=== PATIENT | female | born 1980 | race Caucasian/White ===

== ENCOUNTER 2019-08-13 13:49 | Emergency (ER) | payer SELFPAY ==
--- NOTE | 2019-08-13 14:39 | EDM.PDOC ---
ED HPI GENERAL MEDICAL PROBLEM - General Chief Complaint: General Stated Complaint: PANIC ATTACKS Time Seen by Provider: 08/13/19 14:21 Source of Information: Reports: Patient History Limitations: Reports: No Limitations - History of Present Illness INITIAL COMMENTS - FREE TEXT/NARRATIVE: This patient who has a history of panic attacks and had a full work up in [facility] in the recent past presents to the ER with a panicky feeling, throat constriction, dry mouth and "rushes" since 0930 today. She had similar attacks in the past and treated them with breathing exercises and prn hydroxizine. She ran out of this medication and is in requesting more. She denies fever, chills, chest pain, dyspnea or any new neuro symptoms. She and her family recently moved here from [place], [place] and has not found a primary care doctor in the area. Chest Pain Score (Numeric/FACES): 5 - Related Data Allergies Allergy/AdvReac Type Severity Reaction Status Date / Time hydromorphone [From Dilaudid] Allergy Shortness Verified 08/13/19 14:13 of Breath Home Meds: Home Meds hydrOXYzine HCL [hydrOXYzine] 25 mg PO Q6H PRN 08/13/19 [History] Past Medical History Psychiatric History: Reports: Anxiety - Past Surgical History HEENT Surgical History: Reports: Tonsillectomy Social & Family History - Tobacco Use Smoking Status *Q: Light Tobacco Smoker Years of Tobacco use: 29 Packs/Tins Daily: 0.1 - Caffeine Use Caffeine Use: Reports: None - Recreational Drug Use Recreational Drug Use: No ED ROS GENERAL - Review of Systems Review Of Systems: See Below Constitutional: Denies: Fever, Chills, Weakness, Fatigue, Diaphoresis HEENT: Reports: Other (throat constriction) Respiratory: Denies: Shortness of Breath, Wheezing, Cough Cardiovascular: Denies: Chest Pain, Dyspnea on Exertion, Palpitations Endocrine: Denies: Polydypsia, Polyuria GI/Abdominal: Reports: No Symptoms Neurological: Denies: Confusion, Dizziness, Paresthesia, Syncope Psychiatric: Reports: Anxiety. Denies: Homicidal Ideation, Suicidal Ideation Hematologic/Lymphatic: Reports: No Symptoms ED EXAM, GENERAL - Physical Exam Exam: See Below Exam Limited By: No Limitations General Appearance: Alert, WD/WN, No Apparent Distress, Anxious Ears: Normal External Exam, Normal Canal Throat/Mouth: Normal Inspection, Normal Lips Head: Normocephalic Respiratory/Chest: No Respiratory Distress, Lungs Clear, Normal Breath Sounds Cardiovascular: Normal Peripheral Pulses, Regular Rate, Rhythm, No Edema GI/Abdominal: Normal Bowel Sounds, Soft, Non-Tender Extremities: Normal Inspection, Normal Range of Motion Neurological: Alert, Oriented, Normal Cognition, No Motor/Sensory Deficits Psychiatric: Normal Affect, Anxious Skin Exam: Warm, Dry Course - Vital Signs Text/Narrative:: This patient presents with a panic attack. She had similar problems in the past that respond to hydroxizine which she ran out of . She has not established care in this area after recently moving to [place] from [place], [place]. She was given an Rx for hydroxyzine 25 mg every 6 hours as needed. She will make an appointment at the clinic in the near future. Last Recorded V/S: Last Vital Signs Temp 37.0 C 08/13/19 14:10 Pulse 86 08/13/19 14:10 Resp 17 08/13/19 14:10 BP 141/87 H 08/13/19 14:10 Pulse Ox 99 08/13/19 14:10 - Orders/Labs/Meds Orders: Active Orders 24 hr Category Date Time Status OB 1st Tri NT Measure [US] Stat Exams 08/13/19 14:53 Stop Req Meds: Medications Discontinued Medications Generic Name Dose Route Start Last Admin Trade Name Freq PRN Reason Stop Dose Admin Sodium Chloride 1,000 mls @ 1,000 mls/hr 08/13/19 15:00 Normal Saline IV ASDIRECTED HOMA Departure - Departure Time of Disposition: 15:05 Disposition: Home, Self-Care 01 Condition: Good Clinical Impression: Anxiety - Discharge Information *PRESCRIPTION DRUG MONITORING PROGRAM REVIEWED*: Yes *COPY OF PRESCRIPTION DRUG MONITORING REPORT IN PATIENT MARK: No Referrals: PCP,None [Primary Care Provider] - Forms: ED Department Discharge Additional Instructions: Take hydroxyzine as prescribed and as needed for anxiety and panic attacks. Make an appointment with a primary care provider for follow up in the near future. Return to the ER if you have problems or concerns. Sepsis Event Note (ED) - Evaluation Sepsis Screening Result: No Definite Risk - Focused Exam Vital Signs: Vital Signs Temp Pulse Resp BP Pulse Ox 08/13/19 14:10 37.0 C 86 17 141/87 H 99 08/13/19 14:04 37.0 C 86 17 141/87 H 99 - My Orders Last 24 Hours: My Active Orders 08/13/19 14:53 OB 1st Tri NT Measure [US] Stat - Assessment/Plan Last 24 Hours: My Active Orders 08/13/19 14:53 OB 1st Tri NT Measure [US] Stat
[2019-08-13] MEDS ORDERED: Sodium Chloride 0.9% 1,000 ML IV SCH (15:00)
== END 2019-08-13 15:17 | disposition home or self-care (01) ==
LOC: JP.ED 13:49
DX: F41.9 Anxiety disorder, unspecified (principal); F17.210 Nicotine dependence, cigarettes, uncomplicated; Z79.899 Other long term (current) drug therapy; Z88.5 Allergy status to narcotic agent
CPT/HCPCS: 99283

== ENCOUNTER 2019-09-14 01:50 | Emergency (ER) | payer MEDICAID, OTHER ==
[2019-09-14] MEDS ORDERED: Sodium Chloride 0.9% 10 ML Syringe FLUSH PRN (02:10)
[2019-09-14] MEDS ORDERED: Ondansetron 4 MG/2 ML SDV IVPUSH ONE (02:14)
[2019-09-14] MEDS ORDERED: fentaNYL 100 MCG/2 ML SDV IVPUSH ONE ×2 (02:14→04:10)
--- NOTE | 2019-09-14 02:16 | EDM.PDOC ---
ED HPI GENERAL MEDICAL PROBLEM - General Chief Complaint: Gastrointestinal Problem Stated Complaint: BACK PAIN Time Seen by Provider: 09/14/19 02:06 Source of Information: Reports: Patient, Family, RN Notes Reviewed History Limitations: Reports: No Limitations - History of Present Illness INITIAL COMMENTS - FREE TEXT/NARRATIVE: 39-year-old female presents emergency department a complaint of epigastric pain, she states the pain started early this morning she did try eating some spaghetti and meatballs around noon however had emesis has felt ill the remainder of the day unable to eat or drink no history of abdominal surgeries Middle Back Pain Score (Numeric/FACES): 9 - Related Data Allergies Allergy/AdvReac Type Severity Reaction Status Date / Time hydromorphone [From Dilaudid] Allergy Shortness Verified 09/14/19 01:57 of Breath Home Meds: Home Meds hydrOXYzine HCL [hydrOXYzine] 25 mg PO Q6H PRN 08/13/19 [History] Past Medical History Psychiatric History: Reports: Anxiety - Infectious Disease History Infectious Disease History: Reports: Chicken Pox - Past Surgical History HEENT Surgical History: Reports: Tonsillectomy Social & Family History - Tobacco Use Smoking Status *Q: Current Every Day Smoker Years of Tobacco use: 29 Packs/Tins Daily: 0.2 - Caffeine Use Caffeine Use: Reports: None - Recreational Drug Use Recreational Drug Use: No ED ROS GENERAL - Review of Systems Review Of Systems: See Below Constitutional: Reports: Diaphoresis HEENT: Reports: No Symptoms Respiratory: Reports: No Symptoms Cardiovascular: Reports: No Symptoms GI/Abdominal: Reports: Abdominal Pain (Epigastric region), Nausea, Vomiting : Reports: No Symptoms Musculoskeletal: Reports: No Symptoms Skin: Reports: No Symptoms Neurological: Reports: No Symptoms ED EXAM, GI/ABD - Physical Exam Exam: See Below Exam Limited By: No Limitations General Appearance: Alert, WD/WN, Moderate Distress Respiratory/Chest: No Respiratory Distress, Lungs Clear, Normal Breath Sounds, No Accessory Muscle Use, Chest Non-Tender Cardiovascular: Regular Rate, Rhythm, No Murmur GI/Abdominal Exam: Soft, No Organomegaly, No Distention, Tender Back Exam: Normal Inspection, Full Range of Motion. No: CVA Tenderness (R), CVA Tenderness (L), Muscle Spasm, Paraspinal Tenderness, Vertebral Tenderness Extremities: No Pedal Edema Course - Vital Signs Last Recorded V/S: Last Vital Signs Temp 96.8 F L 09/14/19 01:58 Pulse 53 L 09/14/19 05:37 Resp 18 09/14/19 01:58 BP 113/56 L 09/14/19 05:37 Pulse Ox 100 09/14/19 01:58 - Orders/Labs/Meds Orders: Active Orders 24 hr Category Date Time Status Peripheral IV Care [RC] . DIRECTED Care 09/14/19 02:11 Active CULTURE URINE [RM] Urgent Lab 09/14/19 06:04 Ordered Sodium Chloride 0.9% [Normal Saline] 1,000 ml Med 09/14/19 02:15 Active IV ASDIRECTED Sodium Chloride 0.9% [Saline Flush] Med 09/14/19 02:10 Active 10 ml FLUSH ASDIRECTED PRN Peripheral IV Insertion Adult [OM.PC] Urgent Oth 09/14/19 02:10 Ordered Medication Orders Sodium Chloride (Normal Saline) 1,000 mls @ 500 mls/hr IV ASDIRECTED HOMA Last Admin: 09/14/19 02:33 Dose: 500 mls/hr Documented by: Infusion: 09/14/19 02:33 Dose: 500 mls/hr Documented by: Admin: 09/14/19 02:30 Dose: 500 mls/hr Documented by: CLIFFORD Sodium Chloride (Saline Flush) 10 ml FLUSH ASDIRECTED PRN PRN Reason: Keep Vein Open Last Admin: 09/14/19 02:31 Dose: 10 ml Documented by: CLIFFORD Labs: Laboratory Tests 09/14/19 09/14/19 09/14/19 Range/Units 02:25 02:25 02:25 WBC 8.7 (4.5-11.0) K/uL RBC 5.08 (3.30-5.50) M/uL Hgb 14.9 (12.0-15.0) g/dL Hct 45.1 (36.0-48.0) % MCV 89 (80-98) fL MCH 29 (27-31) pg MCHC 33 (32-36) % Plt Count 409 H (150-400) K/uL Neut % (Auto) 72 H (36-66) % Lymph % (Auto) 19 L (24-44) % [place] % (Auto) 8 H (2-6) % Eos % (Auto) 0 L (2-4) % Baso % (Auto) 1 (0-1) % Sodium 139 L (140-148) mmol/L Potassium 4.1 (3.6-5.2) mmol/L Chloride 102 (100-108) mmol/L Carbon Dioxide 30 (21-32) mmol/L Anion Gap 11.1 (5.0-14.0) mmol/L BUN 15 (7-18) mg/dL Creatinine 1.2 H (0.6-1.0) mg/dL Est Cr Clr Drug Dosing 52.58 mL/min Estimated GFR (MDRD) 50 L (>60) Glucose 148 H (74-106) mg/dL Lactic Acid 1.6 (0.4-2.0) mmol/L Calcium 8.8 (8.5-10.1) mg/dL Total Bilirubin 1.4 H (0.2-1.0) mg/dL AST 424 H (15-37) U/L ALT 176 H (12-78) U/L Alkaline Phosphatase 105 (46-116) U/L Troponin I < 0.017 (0.000-0.056) ng/mL Total Protein 8.3 H (6.4-8.2) g/dL Albumin 3.8 (3.4-5.0) g/dL Globulin 4.5 H (2.3-3.5) g/dL Albumin/Globulin Ratio 0.8 L (1.2-2.2) Lipase 268 (73-393) U/L Urine Color (YELLOW) Urine Appearance (CLEAR) Urine pH (5.0-8.0) Ur Specific [place] (1.008-1.030) Urine Protein (NEGATIVE) mg/dL Urine Glucose (UA) (NEGATIVE) mg/dL Urine Ketones (NEGATIVE) mg/dL Urine Occult Blood (NEGATIVE) Urine Nitrite (NEGATIVE) Urine Bilirubin (NEGATIVE) Urine Urobilinogen (0.2-1.0) EU/dL Ur Leukocyte Esterase (NEGATIVE) Urine RBC (0-5) Urine WBC (0-5) Ur Epithelial Cells Amorphous Sediment Urine Bacteria Urine Mucus Urine HCG, Qual 09/14/19 09/14/19 Range/Units 02:40 02:40 WBC (4.5-11.0) K/uL RBC (3.30-5.50) M/uL Hgb (12.0-15.0) g/dL Hct (36.0-48.0) % MCV (80-98) fL MCH (27-31) pg MCHC (32-36) % Plt Count (150-400) K/uL Neut % (Auto) (36-66) % Lymph % (Auto) (24-44) % [place] % (Auto) (2-6) % Eos % (Auto) (2-4) % Baso % (Auto) (0-1) % Sodium (140-148) mmol/L Potassium (3.6-5.2) mmol/L Chloride (100-108) mmol/L Carbon Dioxide (21-32) mmol/L Anion Gap (5.0-14.0) mmol/L BUN (7-18) mg/dL Creatinine (0.6-1.0) mg/dL Est Cr Clr Drug Dosing mL/min Estimated GFR (MDRD) (>60) Glucose (74-106) mg/dL Lactic Acid (0.4-2.0) mmol/L Calcium (8.5-10.1) mg/dL Total Bilirubin (0.2-1.0) mg/dL AST (15-37) U/L ALT (12-78) U/L Alkaline Phosphatase (46-116) U/L Troponin I (0.000-0.056) ng/mL Total Protein (6.4-8.2) g/dL Albumin (3.4-5.0) g/dL Globulin (2.3-3.5) g/dL Albumin/Globulin Ratio (1.2-2.2) Lipase (73-393) U/L Urine Color Yellow (YELLOW) Urine Appearance Slightly cloudy A (CLEAR) Urine pH 7.0 (5.0-8.0) Ur Specific [place] 1.025 (1.008-1.030) Urine Protein Negative (NEGATIVE) mg/dL Urine Glucose (UA) Negative (NEGATIVE) mg/dL Urine Ketones Negative (NEGATIVE) mg/dL Urine Occult Blood Negative (NEGATIVE) Urine Nitrite Negative (NEGATIVE) Urine Bilirubin Small H (NEGATIVE) Urine Urobilinogen 2.0 H (0.2-1.0) EU/dL Ur Leukocyte Esterase Trace H (NEGATIVE) Urine RBC 0-5 (0-5) Urine WBC 5-10 H (0-5) Ur Epithelial Cells Moderate Amorphous Sediment Moderate Urine Bacteria Many Urine Mucus Few Urine HCG, Qual Negative Meds: Medications Generic Name Dose Route Start Last Admin Trade Name Freq PRN Reason Stop Dose Admin Sodium Chloride 1,000 mls @ 500 mls/hr 09/14/19 02:15 09/14/19 02:33 Normal Saline IV 500 mls/hr ASDIRECTED HOMA Administration Sodium Chloride 10 ml 09/14/19 02:10 09/14/19 02:31 Saline Flush FLUSH 10 ml ASDIRECTED PRN Administration Keep Vein Open Discontinued Medications Generic Name Dose Route Start Last Admin Trade Name Freq PRN Reason Stop Dose Admin Fentanyl 50 mcg 09/14/19 02:14 09/14/19 02:30 Sublimaze IVPUSH 09/14/19 02:15 50 mcg ONETIME ONE Administration Fentanyl 100 mcg 09/14/19 04:10 09/14/19 04:18 Sublimaze IVPUSH 09/14/19 04:11 100 mcg ONETIME ONE Administration Sodium Chloride 85 mls @ 4 mls/sec 09/14/19 02:30 09/14/19 02:57 Normal Saline IV 09/14/19 02:31 4 mls/sec ASDIRECTED STA Administration Iopamidol 150 ml 09/14/19 02:30 09/14/19 02:57 Isovue-300 (61%) IV 09/14/19 02:31 150 ml . DIRECTED STA Administration Ketorolac Tromethamine 30 mg 09/14/19 03:13 09/14/19 03:17 Toradol IVPUSH 09/14/19 03:14 30 mg ONETIME ONE Administration Ondansetron HCl 4 mg 09/14/19 02:14 09/14/19 02:30 Zofran IVPUSH 09/14/19 02:15 4 mg ONETIME ONE Administration Departure - Departure Time of Disposition: 06:18 Disposition: Home, Self-Care 01 Condition: Fair Clinical Impression: Cholelithiasis Qualifiers: Cholelithiasis location: gallbladder Cholecystitis presence: without cholecystitis Biliary obstruction: without biliary obstruction Qualified Code(s): K80.20 - Calculus of gallbladder without cholecystitis without obstruction - Discharge Information Instructions: Cholelithiasis Referrals: PCP,None [Primary Care Provider] - Forms: ED Department Discharge Additional Instructions: Recommend bland diet, use hydrocodone as needed for pain control, use Zofran as needed for nausea and vomiting symptoms, please call to the [facility] in the morning for an appointment time with Dr. Coats for further evaluation from general surgery Sepsis Event Note (ED) - Evaluation Sepsis Screening Result: No Definite Risk - Focused Exam Vital Signs: Vital Signs Temp Pulse Resp BP Pulse Ox 09/14/19 05:37 53 L 113/56 L 09/14/19 04:30 65 130/68 09/14/19 03:45 85 140/78 09/14/19 01:58 96.8 F L 99 18 143/80 H 100 - My Orders Last 24 Hours: My Active Orders 09/14/19 02:10 Sodium Chloride 0.9% [Saline Flush] 10 ml FLUSH ASDIRECTED PRN Peripheral IV Insertion Adult [OM.PC] Urgent 09/14/19 02:11 Peripheral IV Care [RC] . DIRECTED 09/14/19 02:15 Sodium Chloride 0.9% [Normal Saline] 1,000 ml IV ASDIRECTED 09/14/19 06:04 CULTURE URINE [RM] Urgent - Assessment/Plan Last 24 Hours: My Active Orders 09/14/19 02:10 Sodium Chloride 0.9% [Saline Flush] 10 ml FLUSH ASDIRECTED PRN Peripheral IV Insertion Adult [OM.PC] Urgent 09/14/19 02:11 Peripheral IV Care [RC] . DIRECTED 09/14/19 02:15 Sodium Chloride 0.9% [Normal Saline] 1,000 ml IV ASDIRECTED 09/14/19 06:04 CULTURE URINE [RM] Urgent Plan: Assessment Acuity = acute Site and laterality = cholelithiasis Etiology = unknown Manifestations = epigastric abdominal pain Location of injury = Home Lab values = CBC unremarkable creatinine elevated 1.2 consistent chronic renal failure stage G3 a lactic acid normal 1.6 total bilirubin elevated 1.4 consisten t with hyperbilirubinemia AST 424 ALT 176 consistent with elevated liver enzymes troponin is negative CT scan does show multiple stones and fatty liver disease, ultrasound confirms multiple stones with no sign of cholecystitis Plan Did review lab work and CT image study and ultrasound of her she is pain-free at this time plan to discharge home hydrocodone 5/325 1 tab p.o. 3 times daily PRN total #10 Zofran 4 mg ODT 1 tab p.o. 3 times daily PRN total #10 consultation has been set up with Dr. Coats general surgery within the next couple of days This note was dictated using [employer] voice recognition software please call with any questions on syntax or grammar.
[2019-09-14] MEDS ORDERED: Iopamidol 612 MG/ML 150 ML Bottle IV STA (02:30)
[2019-09-14] MEDS: Sodium Chloride 0.9% 1,000 ML IV SCH ×2 (02:30→02:33)
[2019-09-14] MEDS ORDERED: Ketorolac 30 MG/ML SDV IVPUSH ONE (03:13)
--- NOTE | 2019-09-14 04:02 | CRLCT ---
INDICATION: Epigastric pain TECHNIQUE: CT abdomen and pelvis acquired with IV contrast. 150 cc Isovue-300 COMPARISON: None FINDINGS: Lower chest: Unremarkable. Liver: Unremarkable. Spleen: Unremarkable. Pancreas: Unremarkable. Gallbladder and bile ducts: Cholelithiasis. Kidneys: Unremarkable. Adrenal glands: Unremarkable. GI tract: Diffuse colonic fecal retention mildly distended stomach. Appendix is normal. Vascular structures: Unremarkable. Lymph nodes: Unremarkable. Miscellaneous: Unremarkable. No free air or significant free fluid. Pelvic Organs: Unremarkable. Bones: Unremarkable for age. IMPRESSION: Diffuse colonic fecal retention mildly distended stomach with debris. The remainder of the exam is essentially unremarkable. Dictated by Garrett Mclaughlin MD @ 09/14/2019 4:00:35 AM Please note that all CT scans at this facility use dose modulation, iterative reconstruction, and/or weight-based dosing when appropriate to reduce radiation dose to as low as reasonably achievable. Dictated by: Garrett Mclaughlin MD @ 09/14/2019 04:00:43 (Electronically Signed)
--- NOTE | 2019-09-14 05:59 | CRLUS ---
INDICATION: Abdominal pain, elevated LFTs TECHNIQUE: Ultrasound abdomen limited. Sonographic images of the right upper quadrant were obtained using salcedo-scale and color Doppler images. COMPARISON: None FINDINGS: Liver: Normal in size diffuse fatty infiltration. No masses. No intrahepatic biliary dilatation. Gallbladder: Cholelithiasis. Normal wall thickness. No pericholecystic fluid. Common bile duct: 4 mm. Pancreas: Normal. Right kidney: 10 point a cm. Normal echotexture and cortex. No masses, stones, or hydronephrosis. Vasculature: Proximal abdominal aorta and IVC are normal. IMPRESSION: Multiple gallstones in an otherwise normal-appearing gallbladder. Diffuse fatty infiltration of the liver. Dictated by Garrett Mclaughlin MD @ 09/14/2019 5:58:46 AM Dictated by: Garrett Mclaughlin MD @ 09/14/2019 05:58:52 (Electronically Signed)
== END 2019-09-14 06:30 | disposition home or self-care (01) ==
LOC: JP.ED 01:50
DX: K80.20 Calculus of gallbladder without cholecystitis without obstruction (principal); F17.210 Nicotine dependence, cigarettes, uncomplicated; Z88.5 Allergy status to narcotic agent
CPT/HCPCS: 36415; 74177; 76705; 80053; 81001; 81025; 83605; 83690; 84484; 85025; 87086; 96361; 96374; 96375; 96376; 99284; J1885; J2405; J3010; J7030; J7050; Q9967

== ENCOUNTER 2019-09-27 12:11 | Inpatient (IN) | payer MEDICAID ==
[2019-09-27] MEDS ORDERED: Ondansetron 4 MG/2 ML SDV IVPUSH PRN (12:27)
[2019-09-27] MEDS ORDERED: Lactated Ringers 1,000 ML IV ONE (12:30)
[2019-09-27] MEDS ORDERED: fentaNYL/Normal Saline 600 MCG/30 ML PCA Vial IV PRN (13:00)
[2019-09-27] MEDS ORDERED: Naloxone 0.4 MG/ML SDV IV PRN (13:00)
[2019-09-27] MEDS: Ampicillin/Sulbactam Na 3 GM in Sodium Chloride 0.9% 100 ML IV SCH ×2 (13:13→18:16)
[2019-09-27] MEDS ORDERED: hydrOXYzine HCl 25 MG Tab PO PRN (13:31)
[2019-09-27] MEDS: Pantoprazole 40 MG Vial IV SCH (14:15)
[2019-09-27] MEDS: Dextrose 5%-Lactated Ringers 1,000 ML IV SCH (18:18)
[2019-09-28] MEDS: Ampicillin/Sulbactam Na 3 GM in Sodium Chloride 0.9% 100 ML IV SCH ×4 (00:40→19:25)
[2019-09-28] MEDS: Dextrose 5%-Lactated Ringers 1,000 ML IV SCH ×2 (05:06→18:06)
[2019-09-28] MEDS ORDERED: Bupivacaine 0.5%/EPINEPHrine 1:200,000 50 ML MDV ONE (06:40)
--- NOTE | 2019-09-28 07:44 | PCM.HP.2 ---
H&P History of Present Illness - General Date of Service: 09/28/19 Admit Problem/Dx: Admission Diagnosis/Problem Admission Diagnosis/Problem Acute cholecystitis Source of Information: Patient History Limitations: Reports: No Limitations - History of Present Illness Initial Comments - Free Text/Narative: Mel states that she has had problems with right upper quadrant abdominal pain, bloating and nausea for about 1 month. The pain increased on 09/14/2019 after eating spaghetti and meatballs that she went to the ED. After evaluation of elevated LFTs an US revealed multiple gallstones in her gallbladder. Mel saw Luis Manuel Coats MD in the clinic yesterday and was a direct admit to the hospital for dehydration and pain control. She is NPO for a Laparoscopic Cholecystectomy today, 09/29/2019 - Case to Follow. - Related Data Allergies/Adverse Reactions: Allergies Allergy/AdvReac Type Severity Reaction Status Date / Time hydromorphone [From Dilaudid] Allergy Shortness Verified 09/14/19 01:57 of Breath Home Medications: Home Meds hydrOXYzine HCL [hydrOXYzine] 25 mg PO Q6H PRN 08/13/19 [History] Past Medical History Gastrointestinal History: Reports: GERD, Hiatal Hernia Psychiatric History: Reports: Anxiety - Infectious Disease History Infectious Disease History: Reports: Chicken Pox - Past Surgical History HEENT Surgical History: Reports: Tonsillectomy GI Surgical History: Reports: None Social & Family History - Family History Family Medical History: Noncontributory - Tobacco Use Smoking Status *Q: Current Every Day Smoker Years of Tobacco use: 25 Packs/Tins Daily: 0.5 Second Hand Smoke Exposure: Yes - Caffeine Use Caffeine Use: Reports: None - Recreational Drug Use Recreational Drug Use: No H&P Review of Systems - Review of Systems: Review Of Systems: Comprehensive ROS is negative, except as noted in HPI. Exam - Exam Exam: See Below - Vital Signs Vital Signs: Last Vital Signs Temp 98.2 F 09/28/19 04:00 Pulse 61 09/27/19 21:00 Resp 16 09/28/19 04:00 BP 126/70 09/28/19 04:00 Pulse Ox 98 09/28/19 04:00 Weight: 272 lb 6.4 oz - Exam Quality Assessment: DVT Prophylaxis General: Alert, Oriented, Mild Distress HEENT: PERRLA, Other (condition of teeth poor) Neck: Supple, Trachea Midline Lungs: Clear to Auscultation, Normal Respiratory Effort Cardiovascular: Regular Rate, Regular Rhythm GI/Abdominal Exam: Soft, Other (tenderness in the right upper abdominal quadrant) (Female) Exam: Deferred Rectal (Female) Exam: Deferred Back Exam: Normal Inspection, Full Range of Motion Extremities: Normal Inspection, No Pedal Edema Skin: Warm, Dry, Intact Neurological: Cranial Nerves Intact, Reflexes Equal Bilateral Neuro Extensive - Mental Status: Alert, Oriented x3, Normal Mood/Affect, Memory Intact Neuro Extensive - Motor, Sensory, Reflexes: CN II-XII Intact Psychiatric: Alert, Normal Affect, Normal Mood - Patient Data Lab Results Last 24 hrs: Laboratory Results - last 24 hr 09/27/19 09/27/19 09/27/19 Range/Units 12:56 12:56 12:56 WBC 7.3 (4.5-11.0) K/uL RBC 4.94 (3.30-5.50) M/uL Hgb 14.1 (12.0-15.0) g/dL Hct 44.1 (36.0-48.0) % MCV 89 (80-98) fL MCH 29 (27-31) pg MCHC 32 (32-36) % Plt Count 396 (150-400) K/uL Sodium 138 L (140-148) mmol/L Potassium 4.6 (3.6-5.2) mmol/L Chloride 104 (100-108) mmol/L Carbon Dioxide 29 (21-32) mmol/L Anion Gap 9.6 (5.0-14.0) mmol/L BUN 14 (7-18) mg/dL Creatinine 1.1 H (0.6-1.0) mg/dL Est Cr Clr Drug Dosing 57.36 mL/min Estimated GFR (MDRD) 56 L (>60) Glucose 90 (74-106) mg/dL Calcium 8.7 (8.5-10.1) mg/dL Phosphorus 2.7 (2.5-4.9) mg/dL Magnesium 2.1 (1.8-2.4) mg/dL Total Bilirubin 0.3 D (0.2-1.0) mg/dL AST 16 D (15-37) U/L ALT 23 D (12-78) U/L Alkaline Phosphatase 69 (46-116) U/L Total Protein 7.6 (6.4-8.2) g/dL Albumin 3.5 (3.4-5.0) g/dL Globulin 4.1 H (2.3-3.5) g/dL Albumin/Globulin Ratio 0.9 L (1.2-2.2) SARS Virus RNA (PCR) (NEGATIVE) 09/27/19 Range/Units 13:38 WBC (4.5-11.0) K/uL RBC (3.30-5.50) M/uL Hgb (12.0-15.0) g/dL Hct (36.0-48.0) % MCV (80-98) fL MCH (27-31) pg MCHC (32-36) % Plt Count (150-400) K/uL Sodium (140-148) mmol/L Potassium (3.6-5.2) mmol/L Chloride (100-108) mmol/L Carbon Dioxide (21-32) mmol/L Anion Gap (5.0-14.0) mmol/L BUN (7-18) mg/dL Creatinine (0.6-1.0) mg/dL Est Cr Clr Drug Dosing mL/min Estimated GFR (MDRD) (>60) Glucose (74-106) mg/dL Calcium (8.5-10.1) mg/dL Phosphorus (2.5-4.9) mg/dL Magnesium (1.8-2.4) mg/dL Total Bilirubin (0.2-1.0) mg/dL AST (15-37) U/L ALT (12-78) U/L Alkaline Phosphatase (46-116) U/L Total Protein (6.4-8.2) g/dL Albumin (3.4-5.0) g/dL Globulin (2.3-3.5) g/dL Albumin/Globulin Ratio (1.2-2.2) SARS Virus RNA (PCR) Negative (NEGATIVE) Result Diagrams: 09/27/19 12:56 09/27/19 12:56 Sepsis Event Note - Evaluation Sepsis Screening Result: No Definite Risk - Focused Exam Vital Signs: Vital Signs Temp Pulse Resp BP Pulse Ox 09/28/19 04:00 98.2 F 16 126/70 98 09/27/19 21:00 98.2 F 61 16 140/84 100 - Problem List (1) Cholelithiasis SNOMED Code(s): 948583761 ICD Code: K80.20 - CALCULUS OF GALLBLADDER W/O CHOLECYSTITIS W/O OBSTRUCTION Status: Acute Current Visit: No Qualifiers: Cholelithiasis location: gallbladder Cholecystitis presence: with cholecystitis Biliary obstruction: without biliary obstruction Qualified Code(s): K80.20 - Calculus of gallbladder without cholecystitis without obstruction Problem List Initiated/Reviewed/Updated: Yes Orders Last 24hrs: Active Orders 24 hr Category Date Time Status Admission Status [Patient Status] [ADT] Routine ADT 09/27/19 12:00 Active Ambulate [RC] QID Care 09/27/19 12:22 Active Incentive Breathing [RT Incentive Spirometry] [RC] Care 09/27/19 12:23 Active Q1HWA Intake and Output [RC] QSHIFT Care 09/27/19 12:25 Active Up to Chair [RC] QID Care 09/27/19 12:22 Active Verify Patient Consent Obtain [RC] ASDIRECTED Care 09/28/19 10:30 Active Vital Signs [RC] Q4H Care 09/27/19 12:22 Active Clear Liquid Diet [DIET] Diet 09/27/19 Dinner Active NPO After Midnight [Nothing per Oral After Midnight Diet 09/27/19 Dinner Active Diet] [DIET] Ampicillin/Sulbactam Na [Unasyn] 3 gm Med 09/27/19 13:00 Active Sodium Chloride 0.9% [Normal Saline] 100 ml IV Q6H Aztreonam [Azactam] 1 gm Med 09/27/19 14:00 Active Sodium Chloride 0.9% [Normal Saline] 50 ml IV Q8H Dextrose 5%-Lactated Ringers 1,000 ml Med 09/27/19 17:30 Active IV ASDIRECTED Ketamine [Ketalar] Med 09/28/19 11:00 Active 26 mg IV ASDIRECTED Ketamine [Ketalar] 50 mg Med 09/28/19 11:00 Active Sodium Chloride 0.9% [Normal Saline] 49.5 ml IV ASDIRECTED Naloxone [Narcan] Med 09/27/19 13:00 Active 0.1 mg IV ASDIRECTED PRN Ondansetron [Zofran] Med 09/27/19 12:27 Active 4 mg IVPUSH Q4H PRN Pantoprazole [ProTONIX IV] Med 09/27/19 14:00 Active 40 mg IV Q24H Ropivacaine [Naropin 0.5%] 60 ml Med 09/28/19 11:00 Active dexAMETHasone [Dexamethasone] 8 mg EPINEPHrine [Adrenalin] 0.4 mg Sodium Chloride 0.9% [Normal Saline] 17.6 ml NERVRT ASDIRECTED fentaNYL/Normal Saline [fentaNYL in NS 20 MCG/ML 30 ML Med 09/27/19 13:00 Active REGISTERED PHARMACY TECHNICIAN] 0 mcg IV ASDIRECTED PRN SCD [Sequential Compression Device] [OM.PC] Routine Oth 09/27/19 12:23 Ordered Medication Orders Ropivacaine 60 ml/Dexamethasone 8 mg/Epinephrine HCl 0.4 mg/ Sodium Chloride 17.6 ml 0 ml NERVRT ASDIRECTED HOMA Fentanyl Citrate (Fentanyl In Ns 20 Mcg/Ml 30 Ml [employer]) 0 mcg IV ASDIRECTED PRN; Protocol PRN Reason: Pain Last Admin: 09/27/19 13:21 Dose: 600 mcg Documented by: CAPO Dextrose/Lactated Ringer's (Dextrose 5%-Lactated Ringers) 1,000 mls @ 100 mls/hr IV ASDIRECTED [facility] Last Admin: 09/28/19 05:06 Dose: 100 mls/hr Documented by: Infusion: 09/28/19 04:18 Dose: 100 mls/hr Documented by: Admin: 09/27/19 18:18 Dose: 100 mls/hr Documented by: CAPO Ampicillin Sodium/Sulbactam (Sodium 3 gm/ Sodium Chloride) 100 mls @ 200 mls/hr IV Q6H [facility] Last Admin: 09/28/19 00:40 Dose: 200 mls/hr Documented by: Admin: 09/27/19 18:16 Dose: 200 mls/hr Documented by: Admin: 09/27/19 13:13 Dose: 200 mls/hr Documented by: CAPO Aztreonam 1 gm/ Sodium (Chloride) 50 mls @ 100 mls/hr IV Q8H [facility] Last Admin: 09/28/19 05:06 Dose: 100 mls/hr Documented by: Admin: 09/27/19 21:16 Dose: 100 mls/hr Documented by: Admin: 09/27/19 14:15 Dose: 100 mls/hr Documented by: CAPO Ketamine HCl 50 mg/ Sodium (Chloride) 50 mls @ 15.7 mls/hr IV ASDIRECTED [facility] Ketamine HCl (Ketalar) 26 mg IV ASDIRECTED [facility] Naloxone HCl (Narcan) 0.1 mg IV ASDIRECTED PRN PRN Reason: decreased respiratory rate Ondansetron HCl (Zofran) 4 mg IVPUSH Q4H PRN PRN Reason: Nausea Pantoprazole Sodium (Protonix Iv) 40 mg IV Q24H [facility] Last Admin: 09/27/19 14:15 Dose: 40 mg Documented by: CAPO Assessment/Plan Comment:: Assessment: Acute Cholecystitis and Cholelithiasis Plan: After preoperative evaluation, discussion of possible risks and benefits patient wishes to proceed with surgical procedure. Discussed post op pain, hospital stay and post op restrictions when discharged plus when she can return to work. Patient cleared for General Anesthesia. Plan discharge in Roslyn Simons 09/28/2019 - Mortality Measure Prognosis:: Good
[2019-09-28] MEDS ORDERED: fentaNYL 250 MCG/5 ML SDV ONE (09:36)
[2019-09-28] MEDS ORDERED: Succinylcholine 200 MG/10 ML MDV ONE (09:37)
[2019-09-28] MEDS ORDERED: Rocuronium 50 MG/5 ML Vial ONE (09:37)
[2019-09-28] MEDS ORDERED: Ondansetron 4 MG/2 ML SDV ONE (09:37)
[2019-09-28] MEDS ORDERED: Propofol 200 MG/20 ML SDV ONE (09:37)
[2019-09-28] MEDS ORDERED: Glycopyrrolate 0.2 MG/ML 5 ML MDV ONE (09:37)
[2019-09-28] MEDS ORDERED: Neostigmine Methylsulfate 1 MG/ML 5 ML Syringe ONE (09:37)
[2019-09-28] MEDS ORDERED: Dexamethasone 4 MG/ML SDV ONE (09:37)
[2019-09-28] MEDS ORDERED: Ketamine 50 MG in Sodium Chloride 0.9% 49.5 ML IV SCH (11:00)
[2019-09-28] MEDS ORDERED: Ketamine 500 MG/5 ML MDV IV SCH (11:00)
[2019-09-28] MEDS ORDERED: Lactated Ringers 1,000 ML ONE (13:33)
[2019-09-28] MEDS ORDERED: hydrOXYzine HCL 100 MG/2 ML SDV IM ONE (14:21)
[2019-09-28] MEDS: Pantoprazole 40 MG Vial IV SCH (15:51)
[2019-09-28] MEDS: hydrOXYzine HCl 25 MG Tab PO PRN (19:25)
[2019-09-28] MEDS: Acetaminophen/HYDROcodone 325-5 MG Tab PO PRN (21:12)
[2019-09-29] MEDS: Ampicillin/Sulbactam Na 3 GM in Sodium Chloride 0.9% 100 ML IV SCH ×4 (01:02→19:28)
[2019-09-29] MEDS: Acetaminophen/HYDROcodone 325-5 MG Tab PO PRN ×6 (01:02→21:46)
[2019-09-29] MEDS: hydrOXYzine HCl 25 MG Tab PO PRN ×3 (04:51→20:02)
[2019-09-29] MEDS: Dextrose 5%-Lactated Ringers 1,000 ML IV SCH ×2 (05:39→16:41)
[2019-09-29] MEDS ORDERED: Ondansetron 4 MG Tab.DIS PO PRN (07:20)
[2019-09-29] MEDS: Bisacodyl 5 MG Tab PO SCH ×2 (09:21→20:02)
[2019-09-29] MEDS: Docusate Sodium 100 MG Cap PO SCH ×2 (09:23→20:02)
--- NOTE | 2019-09-29 10:38 | PN ---
DATE OF SERVICE: 09/29/2019 SUBJECTIVE: Mel is postoperative day #1 following a laparoscopic cholecystectomy. She has had difficulty with pain control. Vital signs have been stable. She has been up to ambulate. Remainder of review of systems negative for any pertinent positives and negatives. OBJECTIVE: GENERAL: Mel Coy is a pleasant 39-year-old female. VITAL SIGNS: TPR last checked 09/29/2019 at 0218; 99.6, 53, 16. Blood pressure 108/50. HEENT: Negative. NECK: Supple. HEART: Regular rate and rhythm. LUNGS: Clear. ABDOMEN: Dressings dry and intact. STUART drain is draining a light pink drainage, total of 20 mL in the past 24 hours. EXTREMITIES: SCDs are on, and there is no peripheral edema. ASSESSMENT: Diagnostic laparoscopy with lysis of adhesions. 1. Cholecystectomy. 2. Repair of area deserosalization of the duodenum. POSTOPERATIVE DIAGNOSES: 1. Subacute cholecystitis and cholelithiasis. 2. Gallbladder neck adherent to duodenum with focal deserosalization. Date of Surgery: 09/28/2019. Surgeon: Luis Manuel Coats MD. PLAN: 1. Discontinue STUART drain. 2. Colace 100 mg b.i.d. p.o. 3. Dulcolax 10 mg tablets p.o. b.i.d. 4. Dressing off, may shower. 5. We will plan discharge in a.m. The patient is having poor oral intake and inadequate pain control to be discharged today. 6. We will evaluate p.r.n. or in a.m. Roslyn Sommesr PA-C /[id number]
[2019-09-29] MEDS: Nicotine 7 MG/24 Hr Patch TRDERM SCH (12:38)
[2019-09-29] MEDS: Pantoprazole 40 MG Tab.CR PO SCH (17:16)
[2019-09-30] MEDS: Ampicillin/Sulbactam Na 3 GM in Sodium Chloride 0.9% 100 ML IV SCH ×2 (00:27→06:28)
[2019-09-30] MEDS: hydrOXYzine HCl 25 MG Tab PO PRN (03:10)
[2019-09-30] MEDS: Acetaminophen/HYDROcodone 325-5 MG Tab PO PRN ×2 (03:10→07:21)
[2019-09-30] MEDS: Dextrose 5%-Lactated Ringers 1,000 ML IV SCH (04:34)
[2019-09-30] MEDS: Pantoprazole 40 MG Vial IV SCH (04:34)
[2019-09-30] MEDS: Pantoprazole 40 MG Tab.CR PO SCH (07:24)
[2019-09-30] MEDS: Docusate Sodium 100 MG Cap PO SCH (10:16)
[2019-09-30] MEDS: Nicotine 7 MG/24 Hr Patch TRDERM SCH (10:16)
[2019-09-30] MEDS: Bisacodyl 5 MG Tab PO SCH (10:16)
--- NOTE | 2019-10-01 10:28 | OR ---
DATE OF PROCEDURE: 09/28/2019 SURGEON: Luis Manuel Coats MD PREOPERATIVE DIAGNOSIS: Subacute cholecystitis and cholelithiasis. POSTOPERATIVE DIAGNOSIS: Subacute cholecystitis and cholelithiasis with gallbladder neck adherent to duodenum with focal deserosalization of duodenum following subsequent dissection. OPERATIVE PROCEDURES: Diagnostic laparoscopy with lysis of adhesions and: 1. Cholecystectomy (84318). 2. Repair of deserosalization of duodenum (71332). ANESTHESIA: General. GLOBAL PROGRAM DIRECTOR: Roslyn Sommers PA-C INDICATIONS FOR PROCEDURE: This is a 39-year-old female presenting with ongoing pain related to an ongoing cholecystitis. She was seen in the emergency room yesterday with ongoing pain, nausea, and dehydration, and was admitted for IV hydration. Plan is to proceed with a cholecystectomy at this time. Potential risks including bleeding and injury to the common bile duct or other adjacent viscera, possible persistent symptoms postoperatively were all reviewed, and the patient wishes to proceed. DETAILS OF PROCEDURE: The patient was taken to the operating room, placed in a supine position. After general endotracheal anesthesia was induced, the abdomen was prepped and draped. The patient had previous periumbilical incision making some adhesions in that area a likelihood. Given this, a small transverse incision just to the right of the umbilicus was made, carried down through the skin and subcutaneous tissue. Peritoneal cavity entered under direct vision with an Optiview trocar. Peritoneal cavity was inflated with 15 mmHg pressure with CO2. Laparoscope was reinserted. No underlying trocar insertion site injuries were seen. Following this, a 12 mm epigastric trocar was placed along with 5 mm right abdominal trocar and the upper abdomen examined. The patient had quite a bit of dense adhesions between the omentum and the gallbladder. These were initially taken down with Harmonic Scalpel. Underlying gallbladder was edematous and salcedo-white color consistent with chronic subacute cholecystitis. Gallbladder was then retracted anteriorly and laterally. Dissection then began on the area of the gallbladder neck. The duodenum was densely adherent to this area and was dissected free. Roughly a thumbprint area of duodenum was noted to be deserosalized. Following this, then the cystic duct gallbladder neck junction was identified. The cystic artery appeared to be somewhat adherent to what would likely be the common hepatic duct. This was dissected free, and once that area was well delineated, both structures had 3 clips placed proximally and 1 distally and divided. The gallbladder was then dissected off the gallbladder bed using the Harmonic scalpel and delivered through the epigastric trocar site and noted to contain multiple stones. Area of this deserosalization was then addressed with a series of 3 3-0 Vicryl seromuscular stitches being placed over the duodenum with a transverse orientation. This was then reinforced with fibrin sealant and the omentum then placed over that area while the fibrin sealant was setting up, thus fixing the omentum in that position. A Shay-Vargas drain was taken out the right lateral trocar site, placed into the area of the gallbladder bed, and with no further problems noted, trocars were removed and the peritoneal cavity deflated. The fascia at 12 mm site was closed with 0 Vicryl stitch and the skin with 4-0 Vicryl subcuticular stitch. The patient had received bilateral transversus abdominis plane blocks and the incision was also anesthetized with 1% lidocaine mixed with Marcaine. The patient was taken to the recovery room in satisfactory condition. Physician paralegal assistant, Roslyn Sommers, played an essential role assisting in this case, helping to position the patient, retract structures as needed, as well as suturing and cutting sutures when indicated. Her presence improved patient safety and decreased operative time. Luis Manuel Coats MD /[id number]
--- NOTE | 2019-10-01 12:28 | DISCH ---
FINAL DIAGNOSES: 1. Subacute and chronic cholecystitis and cholelithiasis. 2. Marked pain, nausea, and associated dehydration. 3. Postoperative persistent pain and poor oral intake. OPERATIVE PROCEDURES: Done on 09/27: 1. Diagnostic laparoscopy with lysis of adhesions: a. Cholecystectomy. b. Repair of area of deserosalization of the duodenum adherent to gallbladder neck. SUMMARY: This is a 39-year-old presenting to the emergency room earlier with a picture of an acute cholecystitis. She was initially treated with outpatient pain medication, presented to the clinic with quite severe pain and dehydration along with significant nausea. Given this, she was admitted for rehydration and pain control. Following day, the patient underwent a cholecystectomy. The gallbladder was noted to be adherent to the neck of the duodenum which resulted in its deserosalization and need for repair of that with sutures, some fibrin sealant along with omental patch. Postoperatively, she was slow in terms of restoring adequate oral intake as well as adequate pain control. She was kept 1 extra day. At this point, she is tolerating a solid diet and pain control appeared to be satisfactory. She will be discharged home on her usual medications plus [place] 5/325, 1 to 2 tablets q.6 hours p.r.n. pain. Following up with Roslyn Sommers at [facility] on 10/06/2019.
== END 2019-09-30 10:17 | disposition home or self-care (01) | DRG 416 ==
LOC: JP.MS 12:11
PROVIDERS: ADMIT Surgery; ATTEND Surgery
PROC: 0FT40ZZ Resection of Gallbladder, Open Approach (ICD-10-PCS; principal; 2019-09-27)
PROC: 0DQ94ZZ Repair Duodenum, Percutaneous Endoscopic Approach (ICD-10-PCS; 2019-09-27)
DX: K80.12 Calculus of gallbladder with acute and chronic cholecystitis without obstruction (principal); K21.9 Gastro-esophageal reflux disease without esophagitis; F41.9 Anxiety disorder, unspecified; F17.200 Nicotine dependence, unspecified, uncomplicated; Z11.59 Encounter for screening for other viral diseases; Z88.5 Allergy status to narcotic agent
CPT/HCPCS: 36415; 80053; 82247; 83735; 84075; 84100; 85027; 94762; A9270-GY; C9113; J0171; J0295; J0330; J1100; J2405; J2704; J2710; J2795; J3010; J3410; J3490; J7050; J7120; J7121; U0002

== ENCOUNTER 2019-12-22 13:56 | Emergency (ER) | payer MEDICAID ==
[2019-12-22] MEDS ORDERED: Acetaminophen/HYDROcodone 325-5 MG Tab PO ONE (16:49)
[2019-12-22] MEDS ORDERED: Ketorolac 60 MG/2 ML SDV IM ONE (16:49)
--- NOTE | 2019-12-22 16:50 | EDM.PDOC ---
ED HPI GENERAL MEDICAL PROBLEM - General Chief Complaint: General Stated Complaint: BROKEN TOOTH RIGHT SIDE Time Seen by Provider: 12/22/19 16:50 Source of Information: Reports: Patient History Limitations: Reports: No Limitations - History of Present Illness INITIAL COMMENTS - FREE TEXT/NARRATIVE: pt arrived with severe pain in the rt upper molar area. She has mild swelling on her face. Onset: Today, Sudden Duration: Hour(s): Location: Reports: Face Associated Symptoms: Reports: Headaches - Related Data Allergies Allergy/AdvReac Type Severity Reaction Status Date / Time hydromorphone [From Dilaudid] Allergy Intermediate Shortness Verified 12/22/19 15:12 of Breath Home Meds: Home Meds hydrOXYzine HCL [hydrOXYzine] 25 mg PO Q6H PRN 08/13/19 [History] Past Medical History Gastrointestinal History: Reports: GERD, Hiatal Hernia Psychiatric History: Reports: Anxiety - Infectious Disease History Infectious Disease History: Reports: Chicken Pox - Past Surgical History HEENT Surgical History: Reports: Tonsillectomy GI Surgical History: Reports: None, Cholecystectomy Social & Family History - Family History Family Medical History: Noncontributory - Tobacco Use Tobacco Use Status *Q: Current Every Day Tobacco User Years of Tobacco use: 20 Packs/Tins Daily: 0.3 - Caffeine Use Caffeine Use: Reports: None - Recreational Drug Use Recreational Drug Use: No ED ROS GENERAL - Review of Systems Review Of Systems: See Below Constitutional: Reports: Fever, Chills, Malaise HEENT: Reports: Dental Pain Respiratory: Reports: No Symptoms Cardiovascular: Reports: No Symptoms Endocrine: Reports: No Symptoms GI/Abdominal: Reports: No Symptoms ED EXAM, GENERAL - Physical Exam Exam: See Below Free Text/Narrative:: pt has a very carious tooth in the rt upper molar area. This keeps breaking and it did break further. Exam Limited By: No Limitations General Appearance: Alert, Anxious Ears: Normal TMs Nose: Normal Inspection Throat/Mouth: Other (pt has mild facial swelling. sHe has a very carrious tooth in the rt upper molar area. ) Head: Atraumatic Course - Vital Signs Last Recorded V/S: Last Vital Signs Temp 36.8 C 12/22/19 15:09 Pulse 94 12/22/19 15:09 Resp 16 12/22/19 15:09 BP 148/93 H 12/22/19 15:09 Pulse Ox 98 12/22/19 15:09 - Orders/Labs/Meds Meds: Medications Discontinued Medications Generic Name Dose Route Start Last Admin Trade Name Milla PRN Reason Stop Dose Admin Hydrocodone Bitart/Acetaminophen 1 tab 12/22/19 16:49 12/22/19 16:58 [place] 325-5 Mg PO 12/22/19 16:50 1 tab ONETIME ONE Administration Ketorolac Tromethamine 60 mg 12/22/19 16:49 12/22/19 16:59 Toradol IM 12/22/19 16:50 60 mg ONETIME ONE Administration - Re-Assessments/Exams Free Text/Narrative Re-Assessment/Exam: 12/22/19 16:57 pt was given torodol 60 mg and norco 5/325. Departure - Departure Time of Disposition: 16:50 Disposition: Home, Self-Care 01 Condition: Fair Clinical Impression: Infected tooth - Discharge Information Referrals: PCP,None [Primary Care Provider] - Forms: ED Department Discharge Care Plan Goals: amoxicillin 500mg tid, norco 5/325 q6h prn for severe pain, appt at [facility] for Wednesday. motrin 600mg tid for pain. Sepsis Event Note (ED) - Evaluation Sepsis Screening Result: No Definite Risk - Focused Exam Vital Signs: Vital Signs Temp Pulse Resp BP Pulse Ox 12/22/19 15:09 36.8 C 94 16 148/93 H 98
== END 2019-12-22 17:08 | disposition home or self-care (01) ==
LOC: JP.ED 13:56
DX: K04.7 Periapical abscess without sinus (principal); K02.9 Dental caries, unspecified; F17.210 Nicotine dependence, cigarettes, uncomplicated; Z88.5 Allergy status to narcotic agent
CPT/HCPCS: 96372; 99283; A9270; J1885

== ENCOUNTER 2020-08-24 13:26 | Emergency (ER) | payer MEDICAID, SELFPAY ==
[2020-08-24] MEDS ORDERED: LORazepam 1 MG Tab PO ONE (15:10)
--- NOTE | 2020-08-24 15:14 | EDM.PDOC ---
ED HPI GENERAL MEDICAL PROBLEM - General Chief Complaint: Respiratory Problem Stated Complaint: CHEST PAIN, SOB Time Seen by Provider: 08/24/20 14:30 Source of Information: Reports: Patient, Family History Limitations: Reports: No Limitations - History of Present Illness INITIAL COMMENTS - FREE TEXT/NARRATIVE: 40-year-old female with a long history of anxiety, has felt short of breath for the past 12 hours. She slept well last night but did take some hydroxyzine, this morning she still has some light chest pressure and feels she cannot get a deep breath so wanted to be checked. No fevers or chills, no significant cough, no nausea or vomiting. Onset: Gradual Duration: Hour(s): (Symptoms for the past 14 hours) Location: Reports: Chest (Mild chest pressure) Quality: Reports: Pressure. Denies: Sharp Associated Symptoms: Reports: Other (Patient is not short of breath but she feels like she cannot get a deep breath) Anterior Chest Pain Score (Numeric/FACES): 6 - Related Data Allergies Allergy/AdvReac Type Severity Reaction Status Date / Time hydromorphone [From Dilaudid] Allergy Intermediate Shortness Verified 08/24/20 14:15 of Breath Home Meds: Home Meds hydrOXYzine HCL [Atarax] 25 mg PO Q6H PRN 08/24/20 [History] Past Medical History Respiratory History: Reports: Asthma, Other (See Below) Other Respiratory History: asthma as young child Gastrointestinal History: Reports: GERD, Hiatal Hernia Psychiatric History: Reports: Anxiety Endocrine/Metabolic History: Reports: Obesity/BMI 30+ - Infectious Disease History Infectious Disease History: Reports: Chicken Pox - Past Surgical History HEENT Surgical History: Reports: Tonsillectomy GI Surgical History: Reports: None, Cholecystectomy Social & Family History - Family History Family Medical History: No Pertinent Family History - Tobacco Use Tobacco Use Status *Q: Current Every Day Tobacco User Years of Tobacco use: 20 Packs/Tins Daily: 0.5 Used Tobacco, but Quit: No Second Hand Smoke Exposure: Yes - Caffeine Use Caffeine Use: Reports: None - Recreational Drug Use Recreational Drug Use: No ED ROS GENERAL - Review of Systems Review Of Systems: See Below Constitutional: Denies: Fever, Chills HEENT: Reports: No Symptoms Cardiovascular: Reports: Chest Pain (Pressure persistent) GI/Abdominal: Reports: No Symptoms : Reports: No Symptoms Musculoskeletal: Reports: No Symptoms Skin: Reports: No Symptoms Neurological: Reports: No Symptoms Psychiatric: Reports: Anxiety ED EXAM, GENERAL - Physical Exam Exam: See Below Exam Limited By: No Limitations General Appearance: Alert, Anxious Eye Exam: Bilateral Eye: Normal Inspection Head: Atraumatic Respiratory/Chest: No Respiratory Distress, Lungs Clear, Chest Non-Tender Cardiovascular: Regular Rate, Rhythm. No: Tachycardia GI/Abdominal: Soft, Non-Tender Extremities: Normal Inspection. No: Pedal Edema Neurological: Alert, Oriented Psychiatric: Anxious Skin Exam: Warm, Dry Course - Vital Signs Last Recorded V/S: Last Vital Signs Temp 98.5 F 08/24/20 14:22 Pulse 71 08/24/20 14:22 Resp 17 08/24/20 14:22 BP 132/69 08/24/20 14:22 Pulse Ox 97 08/24/20 14:22 - Orders/Labs/Meds Orders: Active Orders 24 hr Category Date Time Status Chest 2V [CR] Routine Exams 08/24/20 14:36 Taken Meds: Medications Discontinued Medications Generic Name Dose Route Start Last Admin Trade Name Milla PRN Reason Stop Dose Admin Lorazepam 1 mg 08/24/20 15:10 08/24/20 15:14 Lorazepam 1 Mg Tab PO 08/24/20 15:11 1 mg ONETIME ONE Administration - Re-Assessments/Exams Free Text/Narrative Re-Assessment/Exam: 08/24/20 16:26 A 2 view chest x-ray was completely normal. O2 saturations 100% and the rest of her vitals were fine. Patient was given 1 mg of oral Ativan, and will return in the next 24 to 48 hours if not improving. Continue her regular medications. Departure - Departure Time of Disposition: 15:27 Disposition: Home, Self-Care 01 Clinical Impression: Anxiety about health Dyspnea Qualifiers: Dyspnea type: shortness of breath Qualified Code(s): R06.02 - Shortness of breath - Discharge Information Instructions: Shortness of Breath, Adult, [id number] Referrals: Ladonna Lindsay PA-C [Primary Care Provider] - Forms: ED Department Discharge Care Plan Goals: Try to decrease smoking, rest today, increase activity as tolerated and return anytime if worsening such as fever or increased shortness of breath. Sepsis Event Note (ED) - Evaluation Sepsis Screening Result: No Definite Risk - Focused Exam Vital Signs: Vital Signs Temp Pulse Resp BP Pulse Ox 08/24/20 14:22 98.5 F 71 17 132/69 97 08/24/20 14:13 98.5 F 71 17 132/69 97 - My Orders Last 24 Hours: My Active Orders 08/24/20 14:36 Chest 2V [CR] Routine - Assessment/Plan Last 24 Hours: My Active Orders 08/24/20 14:36 Chest 2V [CR] Routine
--- NOTE | 2020-08-26 09:33 | CR ---
CHEST: 2 view CLINICAL HISTORY:Dyspnea COMPARISON:None FINDINGS: The heart size, pulmonary vascularity and hilar structures are normal. No infiltrate effusion or pneumothorax is seen. IMPRESSION: No acute cardiopulmonary process.
== END 2020-08-24 15:27 | disposition home or self-care (01) ==
LOC: JP.ED 13:26
DX: F41.9 Anxiety disorder, unspecified (principal); R06.02 Shortness of breath; J45.909 Unspecified asthma, uncomplicated; E66.9 Obesity, unspecified; Z68.42 Body mass index [BMI] 45.0-49.9, adult; Z72.0 Tobacco use; Z88.5 Allergy status to narcotic agent
CPT/HCPCS: 71046; 99284; A9270

== ENCOUNTER 2021-06-03 03:33 | Emergency (ER) | payer MEDICAID ==
[2021-06-03] MEDS ORDERED: Ketorolac 30 MG/ML SDV IM ONE (04:02)
[2021-06-03] MEDS ORDERED: amLODIPine 5 MG Tab PO ONE (04:03)
== END 2021-06-03 05:29 | disposition home or self-care (01) ==
LOC: JP.ED 03:33
DX: F41.9 Anxiety disorder, unspecified (principal); I10 Essential (primary) hypertension; E03.8 Other specified hypothyroidism; E06.3 Autoimmune thyroiditis; K21.9 Gastro-esophageal reflux disease without esophagitis; E66.9 Obesity, unspecified; Z68.43 Body mass index [BMI] 50.0-59.9, adult; Z88.5 Allergy status to narcotic agent; Z79.899 Other long term (current) drug therapy
CPT/HCPCS: 36415; 80053; 81001; 84439; 84443; 85025; 93005; 93010; 96372; 99283; 99283-25; J1885

== ENCOUNTER 2021-06-05 17:56 | Emergency (ER) | payer MEDICAID ==
[2021-06-05] MEDS: Acetaminophen 500 MG Tab PO ONE (20:44)
== END 2021-06-05 20:57 | disposition home or self-care (01) ==
LOC: JP.ED 17:56
DX: R51.9 Headache, unspecified (principal); E03.8 Other specified hypothyroidism; I10 Essential (primary) hypertension; N92.6 Irregular menstruation, unspecified; E66.9 Obesity, unspecified; Z88.5 Allergy status to narcotic agent; Z79.899 Other long term (current) drug therapy; Z72.0 Tobacco use; Z68.42 Body mass index [BMI] 45.0-49.9, adult
CPT/HCPCS: 36415; 70450; 80048; 81025; 85025; 99283; 99284-25; A9270-GY

== ENCOUNTER 2021-07-31 16:41 | Emergency (ER) | payer MEDICAID | END 2021-07-31 17:59 | disposition home or self-care (01) | LOC: JP.ED 16:41 | DX: R55 Syncope and collapse (principal); K21.9 Gastro-esophageal reflux disease without esophagitis; F17.210 Nicotine dependence, cigarettes, uncomplicated; Z88.5 Allergy status to narcotic agent; Z79.899 Other long term (current) drug therapy | CPT/HCPCS: 93010; 99281; 99283 ==